=== PATIENT | male | born 1985 | race Caucasian/White ===

== ENCOUNTER 2017-09-11 14:47 | Emergency (ER) | payer BC, OTHER ==
[~2017-09-11] VITALS: Ht 188 cm; Wt 110.5 kg
[~2017-09-11 14:47] MED LIST: IBUP-1050 PO
[2017-09-11 14:54] VITALS: TEMP 36.6; Ht 188 cm; Wt 110.5 kg
[2017-09-11] MEDS ORDERED: BUPR1SUB23 UT (15:14)
--- NOTE | 2017-09-11 16:59 | DIAGNOSTIC IMAGING REPORT ---
(TESTICULAR) SCROTUM-CONT CLINICAL HISTORY: 32 years-old Male presenting with L testicular painful mass. TECHNIQUE: Real-time grayscale and color and spectral Doppler ultrasound imaging of the scrotum was performed. COMPARISON: None. FINDINGS: Right testis: 2 mm focus of hyperechogenicity within the testicular parenchyma, likely calcification. Parenchyma otherwise normal. Testis measures 5.0 x 2.0 x 3.5 cm. Normal color Doppler flow and arterial and venous waveforms in the testicular parenchyma. Epididymal head normal. No hydrocele. No varicocele. Left testis: Normal echogenicity and echotexture. Testis measures 5.3 x 1.9 x 2.7 cm. Normal color Doppler flow and arterial and venous waveforms in the testicular parenchyma. 2 mm cyst in the epididymis, either spermatocele or epididymal cyst. No hydrocele. Varicocele present. Symmetric perfusion of the testes. IMPRESSION: 1. No evidence of testicular torsion. 2. Left varicocele. This likely accounts for the patient's symptomatology. Electronically signed by: Blayne Levine M.D. 09/11/2017 4:57 PM Dictated Date/Time: 09/11/2017 4:56 PM
[2017-09-11 17:57] VITALS: BP 139/78; PULSE 83; O2SAT 97
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
== END 2017-09-11 17:57 | disposition home or self-care (01) ==
LOC: C.EDB 14:50 → C.EDC 17:57
DX: I86.1 Scrotal varices (principal); F41.9 Anxiety disorder, unspecified; E87.6 Hypokalemia; F12.90 Cannabis use, unspecified, uncomplicated